=== PATIENT | female | born 1975 | race Caucasian/White ===

== ENCOUNTER 2020-05-21 18:09 | Emergency (ER) | payer BC ==
[2020-05-21] MEDS ORDERED: Nitroglycerin 0.4 MG Tab.SL SL PRN (18:31)
[2020-05-21] MEDS ORDERED: Sodium Chloride 0.9% 10 ML Syringe FLUSH PRN (18:31)
[2020-05-21] MEDS ORDERED: Aspirin 81 MG Tab.Chew PO ONE (18:31)
--- NOTE | 2020-05-21 18:36 | EDM.PDOC ---
ED HPI GENERAL MEDICAL PROBLEM - General Chief Complaint: Chest Pain Stated Complaint: CHEST PAIN Time Seen by Provider: 05/21/20 18:32 Source of Information: Reports: Patient History Limitations: Reports: No Limitations - History of Present Illness INITIAL COMMENTS - FREE TEXT/NARRATIVE: Presents with left sided non-radiating chest pain since 1 pm today associated with exertional dyspnea. Patient has had intermittent chest pain for 1 week, PCP scheduled a stress test for 05/25/20. Denies prior h/o CAD, HTN, or HLD. Brother had coronary stents placed at 30 yo. Onset Date: 05/21/20 Onset Time: 13:00 Location: Reports: Chest Quality: Reports: Dull Severity: Moderate Worsens with: Denies: Breathing - Related Data Allergies Allergy/AdvReac Type Severity Reaction Status Date / Time No Known Allergies Allergy Verified 11/25/13 14:23 Home Meds: Home Meds FLUoxetine HCl [Prozac] 20 mg DAILY 05/21/20 [History] Metoprolol Succinate [Toprol XL] 25 mg PO DAILY #30 tab.er 05/21/20 [Rx] Omeprazole 20 mg PO DAILY PRN 05/21/20 [History] Past Medical History Cardiovascular History: Denies: CAD, High Cholesterol, Hypertension, [place] Psychiatric History: Reports: Depression Social & Family History - Family History Cardiac: Reports: CAD ED ROS GENERAL - Review of Systems Review Of Systems: Comprehensive ROS is negative, except as noted in HPI. ED EXAM, GENERAL - Physical Exam Exam: See Below Exam Limited By: No Limitations General Appearance: Alert, WD/WN, No Apparent Distress Throat/Mouth: No Airway Compromise Head: Atraumatic, Normocephalic Neck: Full Range of Motion Respiratory/Chest: No Respiratory Distress, Lungs Clear, Normal Breath Sounds, Chest Non-Tender Cardiovascular: Regular Rate, Rhythm, No Edema, No Gallop, No Murmur Back Exam: Full Range of Motion Extremities: Normal Range of Motion, Non-Tender Neurological: Alert, Normal Cognition Psychiatric: Normal Affect, Normal Mood Skin Exam: Warm, Dry, Intact #1 Interpretation EKG Date: 05/21/20 Time: 18:16 Rhythm: NSR Rate (Beats/Min): 83 Pelzer: LAD-Left Pelzer Deviation (borderline) P-Wave: Present QRS: Normal ST-T: Normal QT: Normal Comparison: NA - No Prior EKG #2 Interpretation EKG Date: 05/21/20 Time: 21:11 Rhythm: NSR Rate (Beats/Min): 76 Pelzer: Normal P-Wave: Present QRS: Normal ST-T: Normal QT: Normal Comparison: No Change Course - Vital Signs Last Recorded V/S: Last Vital Signs Temp 35.9 C L 05/21/20 18:09 Pulse 92 05/21/20 18:09 Resp 16 05/21/20 18:09 BP 142/81 H 05/21/20 18:30 Pulse Ox 98 05/21/20 18:09 - Orders/Labs/Meds Orders: Active Orders 24 hr Category Date Time Status EKG Documentation Completion [RC] ASDIRECTED Care 05/21/20 18:26 Active EKG Documentation Completion [RC] ASDIRECTED Care 05/21/20 19:24 Active CXR [Chest 1V Frontal] [CR] Stat Exams 05/21/20 18:26 Taken Nitroglycerin [Nitrostat] Med 05/21/20 18:31 Active 0.4 mg SL Q5M PRN Sodium Chloride 0.9% [Saline Flush] Med 05/21/20 18:31 Active 10 ml FLUSH ASDIRECTED PRN Saline Lock Insert [OM.PC] Routine Oth 05/21/20 18:31 Ordered EKG 12 Lead [EK] Stat Ther 05/21/20 18:26 Ordered EKG 12 Lead [EK] Urgent Ther 05/21/20 21:15 Ordered Medication Orders Nitroglycerin (Nitrostat) 0.4 mg SL Q5M PRN PRN Reason: Chest Pain Last Admin: 05/21/20 18:30 Dose: 0.4 mg Documented by: MELBA Sodium Chloride (Saline Flush) 10 ml FLUSH ASDIRECTED PRN PRN Reason: Keep Vein Open Last Admin: 05/21/20 18:25 Dose: 10 ml Documented by: MELBA Labs: Laboratory Tests 05/21/20 05/21/20 05/21/20 Range/Units 18:18 18:18 18:18 WBC 8.3 (3.0-10.3) x10-3/uL RBC 4.61 (3.60-5.20) x10(6)uL Hgb 12.5 (11.4-15.5) g/dL Hct 38.3 (34.2-48.2) % MCV 83.0 (76.7-100.5) fL MCH 27.2 (23.9-33.9) pg MCHC 32.7 (31.9-34.8) g/dL RDW 13.1 (12.3-16.5) % Plt Count 391 (151-488) x10(3)uL MPV 7.6 (7.1-12.4) fL Neut % (Auto) 64.4 (30.8-76.2) % Lymph % (Auto) 27.5 (18.4-52.1) % [place] % (Auto) 7.3 (4.4-15.7) % Eos % (Auto) 0.1 L (0.6-8.1) % Baso % (Auto) 0.7 (0.2-1.5) % Neut # (Auto) 5.3 (1.5-6.3) x10-3/uL Lymph # (Auto) 2.3 (1.0-4.4) x10-3/uL [place] # (Auto) 0.6 (0.3-1.0) x10-3/uL Eos # (Auto) 0.0 (0.0-0.8) x10-3/uL Baso # (Auto) 0.1 (0.0-0.1) x10-3/uL PT 9.6 (9.0-11.1) sec INR 0.88 L (1.00-1.24) APTT 24.3 L (24.4-33.2) SECONDS D-Dimer, Quantitative 0.42 (0.0-0.59) mg/LFEU Sodium 137 (135-145) mmol/L Potassium 3.2 L D (3.5-5.3) mmol/L Chloride 101 (100-110) mmol/L Carbon Dioxide 29 (21-32) mmol/L BUN 12 (7-18) mg/dL Creatinine 0.8 (0.55-1.02) mg/dL Est Cr Clr Drug Dosing TNP Estimated GFR (MDRD) > 60 (>60) BUN/Creatinine Ratio 15.0 (9-20) Glucose 103 (80-116) mg/dL Calcium 8.5 L (8.6-10.2) mg/dL Total Bilirubin 0.2 (0.1-1.3) mg/dL AST 51 H D (5-25) IU/L ALT 52 H D (12-36) U/L Alkaline Phosphatase 109 (56-112) IU/L Troponin I (4.0-60.3) pg/mL Total Protein 8.0 (6.0-8.0) g/dL Albumin 3.9 (3.5-5.2) g/dL Globulin 4.1 g/dL Albumin/Globulin Ratio 1.0 05/21/20 05/21/20 Range/Units 18:18 21:20 WBC (3.0-10.3) x10-3/uL RBC (3.60-5.20) x10(6)uL Hgb (11.4-15.5) g/dL Hct (34.2-48.2) % MCV (76.7-100.5) fL MCH (23.9-33.9) pg MCHC (31.9-34.8) g/dL RDW (12.3-16.5) % Plt Count (151-488) x10(3)uL MPV (7.1-12.4) fL Neut % (Auto) (30.8-76.2) % Lymph % (Auto) (18.4-52.1) % [place] % (Auto) (4.4-15.7) % Eos % (Auto) (0.6-8.1) % Baso % (Auto) (0.2-1.5) % Neut # (Auto) (1.5-6.3) x10-3/uL Lymph # (Auto) (1.0-4.4) x10-3/uL [place] # (Auto) (0.3-1.0) x10-3/uL Eos # (Auto) (0.0-0.8) x10-3/uL Baso # (Auto) (0.0-0.1) x10-3/uL PT (9.0-11.1) sec INR (1.00-1.24) APTT (24.4-33.2) SECONDS D-Dimer, Quantitative (0.0-0.59) mg/LFEU Sodium (135-145) mmol/L Potassium (3.5-5.3) mmol/L Chloride (100-110) mmol/L Carbon Dioxide (21-32) mmol/L BUN (7-18) mg/dL Creatinine (0.55-1.02) mg/dL Est Cr Clr Drug Dosing Estimated GFR (MDRD) (>60) BUN/Creatinine Ratio (9-20) Glucose (80-116) mg/dL Calcium (8.6-10.2) mg/dL Total Bilirubin (0.1-1.3) mg/dL AST (5-25) IU/L ALT (12-36) U/L Alkaline Phosphatase (56-112) IU/L Troponin I 4.7 4.7 (4.0-60.3) pg/mL Total Protein (6.0-8.0) g/dL Albumin (3.5-5.2) g/dL Globulin g/dL Albumin/Globulin Ratio Meds: Medications Generic Name Dose Route Start Last Admin Trade Name Freq PRN Reason Stop Dose Admin Nitroglycerin 0.4 mg 05/21/20 18:31 05/21/20 18:30 Nitrostat SL 0.4 mg Q5M PRN Administration Chest Pain Sodium Chloride 10 ml 05/21/20 18:31 05/21/20 18:25 Saline Flush FLUSH 10 ml ASDIRECTED PRN Administration Keep Vein Open Discontinued Medications Generic Name Dose Route Start Last Admin Trade Name Freq PRN Reason Stop Dose Admin Aspirin 324 mg 05/21/20 18:31 05/21/20 18:30 Aspirin PO 05/21/20 18:32 324 mg ONETIME ONE Administration Metoprolol Tartrate 12.5 mg 05/21/20 18:58 Lopressor PO 05/21/20 18:59 ONETIME ONE Potassium Chloride 40 meq 05/21/20 18:54 05/21/20 19:05 Klor-Con M20 PO 05/21/20 18:55 40 meq ONETIME ONE Administration - Radiology Interpretation Free Text/Narrative:: CXR: No acute process. (ED provider interpretation) - Re-Assessments/Exams Free Text/Narrative Re-Assessment/Exam: 05/21/20 19:23 Chest pain resolved after NTG SL x 1. Departure - Departure Time of Disposition: 22:00 Disposition: Home, Self-Care 01 Condition: Good Clinical Impression: Chest pain Qualifiers: Chest pain type: unspecified Qualified Code(s): R07.9 - Chest pain, unspecified Prescriptions: Metoprolol Succinate [Toprol XL] 25 mg PO DAILY #30 tab.er Instructions: Nonspecific Chest Pain, Adult, [id number] Forms: ED Department Discharge Additional Instructions: Take Aspirin 325 mg daily. Fill the prescription for Lopressor and take as directed. Keep your appointment for the stress test. Return to the ER if symptoms recur. Sepsis Event Note (ED) - Focused Exam Vital Signs: Vital Signs Temp Pulse Resp BP BP Pulse Ox 05/21/20 18:30 142/81 H 05/21/20 18:09 35.9 C L 92 16 144/89 H 98 - My Orders Last 24 Hours: My Active Orders 05/21/20 18:26 EKG Documentation Completion [RC] ASDIRECTED CXR [Chest 1V Frontal] [CR] Stat EKG 12 Lead [EK] Stat 05/21/20 18:31 Nitroglycerin [Nitrostat] 0.4 mg SL Q5M PRN Sodium Chloride 0.9% [Saline Flush] 10 ml FLUSH ASDIRECTED PRN Saline Lock Insert [OM.PC] Routine 05/21/20 19:24 EKG Documentation Completion [RC] ASDIRECTED 05/21/20 21:15 EKG 12 Lead [EK] Urgent - Assessment/Plan Last 24 Hours: My Active Orders 05/21/20 18:26 EKG Documentation Completion [RC] ASDIRECTED CXR [Chest 1V Frontal] [CR] Stat EKG 12 Lead [EK] Stat 05/21/20 18:31 Nitroglycerin [Nitrostat] 0.4 mg SL Q5M PRN Sodium Chloride 0.9% [Saline Flush] 10 ml FLUSH ASDIRECTED PRN Saline Lock Insert [OM.PC] Routine 05/21/20 19:24 EKG Documentation Completion [RC] ASDIRECTED 05/21/20 21:15 EKG 12 Lead [EK] Urgent
[2020-05-21] MEDS ORDERED: Potassium Chloride 20 MEQ Tab.ER PO ONE (18:54)
[2020-05-21] MEDS ORDERED: Metoprolol Tartrate 25 MG Tab PO ONE (18:58)
--- NOTE | 2020-05-24 13:10 | CR ---
INDICATION: Chest pain. CHEST ONE VIEW: AP upright view of the chest 05/21/20 - no comparison chest x- ray, however, there was a chest CT dated 12/01/11. Overlying EKG leads are noted. Heart, mediastinum and bony thorax were unremarkable. An active infiltrate or effusion was not identified. IMPRESSION: No acute process. MTDD
== END 2020-05-21 22:18 | disposition home or self-care (01) ==
LOC: FB.ED 18:09
DX: R07.9 Chest pain, unspecified (principal); Z79.899 Other long term (current) drug therapy
CPT/HCPCS: 36415; 71045; 80053; 84484; 85025; 85379; 85610; 85730; 93005; 93010; 99284; 99285-25; A9270-GY

== ENCOUNTER 2020-07-09 06:38 | Day surgery (SDC) | payer BC ==
[~2020-07-09 06:38] MED LIST: Lactated Ringers 1,000 ML IV SCH; Sodium Chloride 0.9% 10 ML Syringe FLUSH PRN
[2020-07-09] MEDS ORDERED: Lidocaine 2% 5 ML SDV INJECT ONE (06:39)
[2020-07-09] MEDS ORDERED: Midazolam 1 MG/ML 2 ML SDV IV ONE (06:39)
[2020-07-09] MEDS ORDERED: Propofol 200 MG/20 ML SDV IV ONE (06:39)
[2020-07-09] MEDS ORDERED: fentaNYL 100 MCG/2 ML SDV IV ONE (06:39)
[2020-07-09] MEDS ORDERED: Sugammadex Sodium 200 MG/2 ML VIAL IV ONE (06:39)
[2020-07-09] MEDS ORDERED: Rocuronium 100 MG/10 ML MDV IV ONE (06:39)
[2020-07-09] MEDS ORDERED: Dexamethasone 4 MG/ML 5 ML MDV IVPUSH ONE (06:39)
[2020-07-09] MEDS ORDERED: Ketorolac 30 MG/ML SDV IVPUSH ONE (06:39)
[2020-07-09] MEDS ORDERED: Lactated Ringers 1,000 ML IV ONE (06:39)
[2020-07-09] MEDS ORDERED: Ondansetron 4 MG/2 ML SDV IVPUSH ONE (06:39)
[2020-07-09] MEDS ORDERED: Acetaminophen 500 MG Tab PO ONE (06:45)
--- NOTE | 2020-07-09 09:04 | PCM.HPR ---
H & P Addendum review - H & P Addendum Review Date of Original H & P: 06/29/20 Date Reviewed: 07/09/20 Time Reviewed: 07:45 Patient was Examined: No Changes
--- NOTE | 2020-07-09 09:06 | PCM.OPNOTE ---
- General Post-Op/Procedure Note Date of Surgery/Procedure: 07/09/20 Operative Procedure(s): Lap Annetta Pre Op Diagnosis: Symptomatic Cholelithiasis Post-Op Diagnosis: Same Anesthesia Technique: General ET Tube Primary Surgeon: Rodo Buitrago Pathology: GB EBL in mLs: 10 Complications: None Condition: Good
[2020-07-09] MEDS ORDERED: Acetaminophen/HYDROcodone 325-5 MG Tab PO ONE (09:22)
--- NOTE | 2020-07-12 08:23 | OR ---
DATE OF OPERATION: 07/09/2020 SURGEON: Rodo Buitrago MD PREOPERATIVE DIAGNOSIS: Symptomatic cholelithiasis. POSTOPERATIVE DIAGNOSIS: Symptomatic cholelithiasis. PROCEDURE: Laparoscopic cholecystectomy. ANESTHESIA: General. PROCEDURE IN DETAIL: The patient was brought to the operating room where general endotracheal anesthesia was administered. The abdomen was prepped with ChloraPrep and draped sterilely. An infraumbilical incision was made and extended into the peritoneal cavity without difficulty. The Cosme cannula later was introduced and pneumoperitoneum obtained. The remaining three 5 mm ports were placed in the usual positions. The patient was placed in reverse Trendelenburg position and rotated to her left. The gallbladder was grasped and retracted cephalad. Cystic duct and cystic artery were dissected free without difficulty. An enlarged cystic duct node was present that had minimal oozing. The cystic artery was doubly clipped proximally and once distally and then transected. A third clip was placed on the cystic artery since there was minimal oozing from the lymph node. The cystic duct anatomy was then reconfirmed and could be seen entering the gallbladder and extending towards the common bile duct. This was doubly clipped proximally and once distally and then transected. The gallbladder was removed from the bed of the liver using electrocautery without difficulty. A posterior branch of the cystic artery was clipped proximally and cauterized distally. Once the gallbladder was completely freed up, it was brought out through the umbilical incision site. The right upper quadrant was inspected and irrigated and return was clear and hemostasis assured. Ports were removed under direct vision and remained hemostatic. Umbilical fascia was closed with [id number] 0 Vicryl. Skin was closed with 4-0 Vicryl subcuticular sutures. Benzoin and Steri-Strips were placed and Band- Aids applied. The patient tolerated the procedure well. Estimated blood loss 10 mL. She returned to postanesthesia in stable condition. /[id number] CEZAR/VICKY
== END 2020-07-09 13:10 ==
LOC: FB.SDS 06:38 → FB.MS 06:38 → FB.SDS 13:10 → FB.MS 13:10
PROVIDERS: ATTEND Surgery
DX: K80.10 Calculus of gallbladder with chronic cholecystitis without obstruction (principal); E78.00 Pure hypercholesterolemia, unspecified; F32.5 Major depressive disorder, single episode, in full remission; D17.22 Benign lipomatous neoplasm of skin and subcutaneous tissue of left arm; Z79.899 Other long term (current) drug therapy
CPT/HCPCS: 00790; 47562; 88304; 94150; A9270; J1100; J1885; J2250; J2405; J2704; J3010; J3490; J7120

== ENCOUNTER 2024-04-20 14:04 | Emergency (ER) | payer BC ==
[2024-04-20] MEDS ORDERED: Sodium Chloride 0.9% 10 ML Syringe FLUSH PRN (14:23)
[2024-04-20 14:51] LABS: BASOPHILS PERCENT AUTO 0.4 % (0.2-1.5); EOSINOPHILS PERCENT AUTO 0.3 % (0.6-8.1); HEMATOCRIT 40.4 % (34.2-48.2); HEMOGLOBIN 12.9 g/dL (11.4-15.5); LYMPHOCYTES ABSOLUTE AUTO 2.1 x10-3/uL (1.0-4.4); LYMPHOCYTES PERCENT AUTO 27.3 % (18.4-52.1); MEAN CORPUSCULAR HEMOGLOBIN 27.8 pg (23.9-33.9); MEAN CORPUSCULAR HGB CONC 31.9 g/dL (31.9-34.8); MEAN CORPUSCULAR VOLUME 87.1 fL (76.7-100.5); MEAN PLATELET VOLUME 7.5 fL (7.1-12.4); MONOCYTES ABSOLUTE AUTO 0.4 x10-3/uL (0.3-1.0); MONOCYTES PERCENT AUTO 5.6 % (4.4-15.7); NEUTROPHILS ABSOLUTE AUTO 5.1 x10-3/uL (1.5-6.3); NEUTROPHILS PERCENT AUTO 66.4 % (30.8-76.2); PLATELET COUNT,PLT 340 x10(3)uL (151-488); RED BLOOD CELL COUNT 4.64 x10(6)uL (3.60-5.20); WHITE BLOOD CELL COUNT,WBC 7.7 x10-3/uL (3.0-10.3)
[2024-04-20 14:53] LABS: BLOOD UREA NITROGEN,BUN 9 mg/dL (7-18); CALCIUM 9.6 mg/dL (8.6-10.2); CARBON DIOXIDE,CO2 29 mmol/L (21-32); CHLORIDE,CL 104 mmol/L (100-110); CREATININE 0.9 mg/dL (0.55-1.02); EST CRCL DRUG DOSING (CG) 55.51 mL/min; ESTIMATED GFR 79 mL/min (>60); GLUCOSE RANDOM 99 mg/dL (80-116); POTASSIUM,K 4.3 mmol/L (3.5-5.3); SODIUM,NA 141 mmol/L (135-145)
[2024-04-20 14:59] LABS: ALANINE AMINOTRANSFERASE,ALT 39 U/L (12-36); ALBUMIN 3.7 g/dL (3.5-5.2); ALKALINE PHOSPHATASE 115 IU/L (56-112); ASPARTATE AMNIOTRANSFERASE,AST 18 IU/L (5-25); BILIRUBIN TOTAL 0.2 mg/dL (0.1-1.3); PROTEIN TOTAL,TP 7.4 g/dL (6.0-8.0)
[2024-04-20] MEDS: Aspirin 81 MG Tab.Chew PO ONE (15:02)
[2024-04-20] MEDS: Nitroglycerin 0.4 MG Tab.SL SL PRN (15:02)
== END 2024-04-20 18:00 | disposition home or self-care (01) ==
LOC: FB.ED 14:04
DX: R07.9 Chest pain, unspecified (principal); Z90.49 Acquired absence of other specified parts of digestive tract; Z79.899 Other long term (current) drug therapy
CPT/HCPCS: 71045; 80053; 81025; 83735; 84484; 85025; 85379; 93005; 99285; A9270